=== PATIENT | female | born 1960 | race Caucasian/White ===

== ENCOUNTER → 2016-12-13 | Outpatient (CLI) | payer BC ==
--- NOTE | 2016-12-13 09:59 | FL ---
EXAMINATION TYPE: FL UGI air w esophagus DATE OF EXAM ORDERED: 12/13/2016 9:55 AM HISTORY: Dysphagia. COMPARISON: None. FINDINGS: The esophagus distended well with air and barium without evidence of obstructing or constr icting disease. The mucosal pattern throughout the esophagus is normal. There is a small self reducin g sliding hiatal hernia. Stomach contour is normal. There is no fixed filling defect or wan ulceration. The duodenal cap and sweep are normal. IMPRESSION: SMALL, SELF REDUCING SLIDING HIATAL HERNIA.
== END | disposition home or self-care (01) ==
LOC: RADFLWHC 09:15
PROVIDERS: ATTEND Internal Medicine
DX: K44.9 Diaphragmatic hernia without obstruction or gangrene (principal)
CPT/HCPCS: 74246

== ENCOUNTER → 2017-03-08 | Outpatient (CLI) | payer BC ==
--- NOTE | 2017-03-09 13:54 | MM ---
Reason for exam: screening (asymptomatic). Last mammogram was performed 6 months ago. History: Patient is postmenopausal and is nulliparous. Physical Findings: A clinical breast exam by your physician is recommended on an annual basis and results should be correlated with mammographic findings. MG Screening Mammo w CAD Bilateral CC and MLO view(s) were taken. Prior study comparison: September 22, 2016, right breast MG diagnostic mammo RT w CAD. March 04, 2016, mammogram. The breast tissue is heterogeneously dense. This may lower the sensitivity of mammography. Finding: There are typically benign calcifications in both breasts. No significant changes in finding since September 22, 2016 and March 04, 2016. ASSESSMENT: Benign, BI-RAD 2 RECOMMENDATION: Routine screening mammogram of both breasts in 1 year.
== END | disposition home or self-care (01) ==
LOC: RADMAMWWP 16:50
PROVIDERS: ATTEND Obstetrics & Gynecology
DX: Z12.31 Encounter for screening mammogram for malignant neoplasm of breast (principal)

== ENCOUNTER → 2018-04-21 | Outpatient (CLI) | payer BC ==
--- NOTE | 2018-04-21 14:43 | BD ---
EXAMINATION TYPE: Axial Bone Density DATE OF EXAM: 04/21/2018 COMPARISON: 08/11/2015 CLINICAL HISTORY: Height: 63.5 IN Weight: 141 LBS FRAX RISK QUESTIONS: Secondary Osteoporosis: Current Tobacco Use: YES RISK FACTORS HISTORY OF: Family History of Osteoporosis: UNCLE Active: YES Postmenopausal woman: AGE 44 MEDICATIONS: Thyroid Medications: YES Which medication: Synthroid How Lon YEAR Osteoporosis Medications: NONE NOW Which medication: Fosamax How Long: TOOK FOR 5 YEARS Additional Medications: CALCIUM, VIT D, SYNTHROID, ATENOLOL, ASPIRIN, OVERACTIVE BLADDER MED, BUSPAR, EXAM MEASUREMENTS: Bone mineral densitometry was performed using the [employer] System. Bone mineral density as measured about the Lumbar spine is: ----- L1-L4(G/cm2): 1.333 T Score Values are as follows: ----- L2: 0.2 ----- L3: 1.0 ----- L4: 2.7 ----- L1-L4: 1.3 Bone mineral density has: Increased 2.9% since study of: 08/11/2015 Bone mineral density about the R hip (g/cm2): 0.879 Bone mineral density about the L hip (g/cm2): 0.911 T Score values are as follows: -----R Neck: -1.1 -----L Neck: -0.9 -----R Total: -1.0 -----L Total: -0.7 Bone mineral density has: Increased 4.7% since study of: 08/11/2015 IMPRESSION: Osteopenia (T Score between -2.5 and -1). There is slightly increased risk of fracture and the patient may be considered for treatment. Re-Screen 2-5 years. NOTE: T-SCORE=SD OF THE YOUNG ADULT MEAN.
--- NOTE | 2018-04-25 07:58 | MM ---
Reason for exam: screening (asymptomatic). Last mammogram was performed 1 year and 1 month ago. History: Patient is postmenopausal and is nulliparous. Physical Findings: A clinical breast exam by your physician is recommended on an annual basis and results should be correlated with mammographic findings. MG Screening Mammo w CAD Bilateral CC and MLO view(s) were taken. Prior study comparison: March 08, 2017, bilateral MG screening mammo w CAD. September 22, 2016, right breast MG diagnostic mammo RT w CAD. November 29, 2012, bilateral digital screening mammo w/CAD. The breast tissue is heterogeneously dense. This may lower the sensitivity of mammography. No significant changes when compared with prior studies. ASSESSMENT: Negative, BI-RAD 1 RECOMMENDATION: Routine screening mammogram of both breasts in 1 year.
== END | disposition home or self-care (01) ==
LOC: RADMAMWWP 12:51
PROVIDERS: ATTEND Obstetrics & Gynecology
DX: Z12.31 Encounter for screening mammogram for malignant neoplasm of breast (principal); M85.80 Other specified disorders of bone density and structure, unspecified site; Z78.0 Asymptomatic menopausal state
CPT/HCPCS: 77067; 77080

== ENCOUNTER → 2018-09-27 | Outpatient (CLI) | payer BC ==
[2018-09-27 10:44] VITALS: BP 114/65; PULSE 58; TEMP 96.3; BMI 24.0
--- NOTE | 2018-09-27 11:12 | P.HPOB ---
History of Present Illness H&P Date: 09/27/18 Chief Complaint: The patient is here for her routine gynecologic exam. This is a 58-year-old G0 with an LMP of 2003. Patient is without gynecologic complaints and denies any postmenopausal bleeding. Review of Systems The patient has lost 4 pounds over the last year. She denies respiratory, cardiac, or G.I. problems. Past Medical History Past Medical History: Thyroid Disorder (Hypothyroid) Additional Past Medical History / Comment(s): Arthritis, irregular heartbeat, overactive bladder and osteopenia. PAST RDA HISTORY: She has no history of STDs. History of Any Multi-Drug Resistant Organisms: None Reported Past Surgical History: Orthopedic Surgery (Left shoulder surgery) Additional Past Surgical History / Comment(s): Laparotomy with ovarian cystectomy in 1993. Colonoscopy 2013(2nd). Past Psychological History: No Psychological Hx Reported Smoking Status: Current every day smoker (Half pack per day) Past Alcohol Use History: Occasional (2 per week) Past Drug Use History: None Reported Additional History: She is . She is currently seeing somebody but is not sexually active. 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 - Past Family History Father Family Medical History: Myocardial Infarction ([place]) Mother Family Medical History: Diabetes Mellitus Medications and Allergies Home Medications Medication Instructions Recorded Confirmed Type Aspirin EC [Ecotrin] 325 mg PO DAILY 09/27/18 09/27/18 History Atenolol [Tenormin] 25 mg PO DAILY 09/27/18 09/27/18 History Calcium Carbonate/Vitamin D3 1 each PO BID 09/27/18 09/27/18 History [Caltrate 600 Plus D3 Tablet] Levothyroxine Sodium [Synthroid] 25 mcg PO DAILY 09/27/18 09/27/18 History Multivitamin/Iron/Folic Acid PO DAILY 09/27/18 History [Centrum Adults Tablet] Tolterodine [Detrol] 2 mg PO DAILY 09/27/18 09/27/18 History busPIRone HCL 10 mg PO BID 09/27/18 09/27/18 History Allergies Allergy/AdvReac Type Severity Reaction Status Date / Time No Known Allergies Allergy Unverified 09/27/18 10:34 Exam Vital Signs Temp Pulse BP 09/27/18 10:39 96.3 F L 58 L 114/65 Intake and Output 09/26/18 09/27/1818 22:59 06:59 14:59 Other: Weight 63.503 kg Height 5'4", weight 140 pounds, BMI 24.0. This is a well-developed well-nourished white female who is alert and oriented times 3 in no acute distress. HEENT: Within normal limits. NECK: Supple without mass or thyromegaly. CHEST AND LUNGS: Clear to auscultation. HEART: Regular rate and rhythm. BREASTS: Are without mass or discharge. AXILLARY EXAM: Negative for adenopathy. BACK: Negative for CVA tenderness. ABDOMEN: Soft, nontender, without palpable masses. PELVIC EXAM: Normal external genitalia with mild atrophy. Cervix and vagina appear normal with mild atrophy. There is no unusual discharge. There is no evidence of prolapse. The uterus is midposition, nongravid size and nontender. There are no palpable adnexal masses or tenderness. RECTAL EXAM: rectovaginal exam is negative for mass or tenderness and is negative for occult blood. EXTREMITIES: Nontender. IMPRESSION: 1. 58-year-old menopausal female with normal gynecologic exam. 2. History of osteopenia status post 7 years use of a bisphosphonate. PLAN: 1. Pap smear was deferred since she had a normal one last year. 2. Self breast awareness was discussed with the patient. 3. Screening mammogram was benign on 04/28/2018. She will repeat this in one year. The order slip was given to the patient for this. 4. Osteoporosis prevention was discussed. I have stressed the importance of adequate calcium, vitamin D and regular exercise. Recommended amounts of calcium and vitamin D were also discussed. We will plan a repeating bone density testing in 2-3 years. 5. She states she will be having a colonoscopy done next year. 6. She will return in one year.
== END | disposition home or self-care (01) ==
LOC: WWCWWP 09:48
PROVIDERS: ATTEND Obstetrics & Gynecology
DX: Z53.9 Procedure and treatment not carried out, unspecified reason (principal)

== ENCOUNTER → 2019-04-23 | Outpatient (CLI) | payer BC ==
--- NOTE | 2019-04-23 14:29 | MM ---
Reason for exam: screening (asymptomatic). Last mammogram was performed 1 year ago. History: Patient is postmenopausal and is nulliparous. Physical Findings: A clinical breast exam by your physician is recommended on an annual basis and results should be correlated with mammographic findings. MG Screening Mammo w CAD Bilateral CC and MLO view(s) were taken. Prior study comparison: April 21, 2018, bilateral MG screening mammo w CAD. March 08, 2017, bilateral MG screening mammo w CAD. There are scattered fibroglandular densities. Benign oil cyst calcifications. No significant changes when compared with prior studies. ASSESSMENT: Negative, BI-RAD 1 RECOMMENDATION: Routine screening mammogram of both breasts in 1 year.
== END | disposition home or self-care (01) ==
LOC: RADMAMWWP 08:05
PROVIDERS: ATTEND Obstetrics & Gynecology
DX: Z12.31 Encounter for screening mammogram for malignant neoplasm of breast (principal)
CPT/HCPCS: 77067

== ENCOUNTER → 2019-11-13 | Outpatient (CLI) | payer BC ==
[2019-11-13 09:45] VITALS: BP 117/76; PULSE 62; RESP 18; TEMP 97.8
--- NOTE | 2019-11-13 10:11 | P.HPOB ---
History of Present Illness H&P Date: 11/13/19 Chief Complaint: The patient is here for her routine gynecologic exam. This is a 59-year-old G0 with an LMP of 2003. The patient is without gynecologic complaints and denies any postmenopausal bleeding. Review of Systems The patient has gained 6 pounds over the last year. She denies respiratory, cardiac, or G.I. problems. Past Medical History Past Medical History: Thyroid Disorder Additional Past Medical History / Comment(s): Hypothyroidism. Arthritis, irregular heartbeat, overactive bladder and osteopenia(s/p 7yrs bisphosphonate use). 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 History of Any Multi-Drug Resistant Organisms: None Reported Past Surgical History: Orthopedic Surgery Additional Past Surgical History / Comment(s): Laparotomy with ovarian cystectomy in 1993. Colonoscopy 2013(2nd,next after 5yr). Past Psychological History: No Psychological Hx Reported Smoking Status: Current every day smoker (One pack per day) Past Alcohol Use History: Occasional (2 per week) Past Drug Use History: None Reported Additional History: She is . She has been seeing somebody since approximately 2017 and they are not sexually active. They do not live together. 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 - Past Family History Father Family Medical History: Myocardial Infarction ([place]) Mother Family Medical History: Diabetes Mellitus Medications and Allergies Home Medications Medication Instructions Recorded Confirmed Type Aspirin EC [Ecotrin] 325 mg PO DAILY 09/27/18 11/13/19 History Atenolol [Tenormin] 25 mg PO DAILY 09/27/18 11/13/19 History Calcium Carbonate/Vitamin D3 1 each PO BID 09/27/18 11/13/19 History [Caltrate 600 Plus D3 Tablet] Levothyroxine Sodium [Synthroid] 75 mcg PO DAILY 09/27/18 11/13/19 History Multivitamin/Iron/Folic Acid 1 tab PO DAILY 09/27/18 11/13/19 History [Centrum Adults Tablet] Tolterodine [Detrol] 2 mg PO DAILY 09/27/18 11/13/19 History busPIRone HCL 10 mg PO BID 09/27/18 11/13/19 History Allergies Allergy/AdvReac Type Severity Reaction Status Date / Time No Known Allergies Allergy Unverified 11/13/19 09:40 Exam Vital Signs Temp Pulse Resp BP Pulse Ox 11/13/19 09:42 97.8 F 62 18 117/76 98 Intake and Output 11/12/19 11/13/19 11/13/19 22:59 06:59 14:59 Other: Weight 66.224 kg Height 5 feet 4 inches, weight 146 pounds, BMI 25.1. This is a well-developed well-nourished white female who is alert and oriented times 3 in no acute distress. HEENT: Within normal limits. NECK: Supple without mass or thyromegaly. CHEST AND LUNGS: Clear to auscultation. HEART: Regular rate and rhythm. BREASTS: Are without mass or discharge. AXILLARY EXAM: Negative for adenopathy. BACK: Negative for CVA tenderness. ABDOMEN: Soft, nontender, without palpable masses. PELVIC EXAM: Normal external genitalia with mild to moderate atrophy. Cervix and vagina appear normal with mild atrophy. There is no unusual discharge. There is no evidence of prolapse. The uterus is midposition, nongravid size and nontender. There are no palpable adnexal masses or tenderness. RECTAL EXAM: Rectovaginal exam is negative for mass or tenderness and is negative for occult blood. EXTREMITIES: Nontender. IMPRESSION: 1. 59-year-old menopausal female with normal gynecologic exam. 2. History of osteopenia status post 7 years of bisphosphonate use. PLAN: 1. Pap smear was performed. 2. Self breast awareness was discussed with the patient. 3. Screening mammogram was done on 04/23/2019 and was benign. She will repeat this after 1 year. The order slip was given to the patient for this. 4. Osteoporosis prevention was discussed. I have stressed the importance of adequate calcium, vitamin D and regular exercise. Recommended amounts of calcium and vitamin D were also discussed. We will plan on repeating the bone density testing in 1 year. 5. She believes she is due for her colonoscopy. She will have this arranged through Dr. Gray's office. 6. She was advised to return in one year for her annual well woman exam.
--- NOTE | 2019-11-21 10:04 | P.PN ---
Progress Note - Text Progress Note Date: 11/21/19 OUTPATIENT FOLLOW-UP NOTE TEST(S)/RESULTS: Pap smear done on 11/13/2019 was negative. METHOD OF NOTIFICATION: She was notified by phone. PATIENT COMMENTS: She is happy to hear this result. DIAGNOSIS: Negative Pap smear DISCUSSION: PLAN: She was advised to return in one year for her annual well woman exam.
== END ==
LOC: WWCWWP 09:23
PROVIDERS: ATTEND Obstetrics & Gynecology
DX: Z53.9 Procedure and treatment not carried out, unspecified reason (principal)

== ENCOUNTER → 2020-06-05 | Outpatient (CLI) | payer BC ==
--- NOTE | 2020-06-09 13:55 | MM ---
Reason for exam: screening (asymptomatic). Last mammogram was performed 1 year and 1 month ago. History: Patient is postmenopausal and is nulliparous. Physical Findings: A clinical breast exam by your physician is recommended on an annual basis and results should be correlated with mammographic findings. MG Screening Mammo w CAD Bilateral CC and MLO view(s) were taken. Prior study comparison: April 23, 2019, bilateral MG screening mammo w CAD. April 21, 2018, bilateral MG screening mammo w CAD. The breast tissue is heterogeneously dense. This may lower the sensitivity of mammography. There are benign appearing round calcifications bilaterally. There is no discrete abnormality. ASSESSMENT: Benign, BI-RAD 2 RECOMMENDATION: Routine screening mammogram of both breasts in 1 year.
== END | disposition home or self-care (01) ==
LOC: RADMAMWWP 07:54
PROVIDERS: ATTEND Obstetrics & Gynecology
DX: Z12.31 Encounter for screening mammogram for malignant neoplasm of breast (principal)
CPT/HCPCS: 77067

== ENCOUNTER → 2021-06-09 | Outpatient (CLI) | payer BC ==
--- NOTE | 2021-06-11 11:22 | MM ---
Reason for exam: screening (asymptomatic). Last mammogram was performed 1 year ago. History: Patient is postmenopausal and is nulliparous. Physical Findings: A clinical breast exam by your physician is recommended on an annual basis and results should be correlated with mammographic findings. MG Screening Mammo w CAD Bilateral CC and MLO view(s) were taken. Prior study comparison: June 05, 2020, bilateral MG screening mammo w CAD. April 23, 2019, bilateral MG screening mammo w CAD. The breast tissue is heterogeneously dense. This may lower the sensitivity of mammography. No significant changes when compared with prior studies. ASSESSMENT: Benign, BI-RAD 2 RECOMMENDATION: Routine screening mammogram of both breasts in 1 year.
== END | disposition home or self-care (01) ==
LOC: RADMAMWWP 15:31
PROVIDERS: ATTEND Internal Medicine
DX: Z12.31 Encounter for screening mammogram for malignant neoplasm of breast (principal); Z78.0 Asymptomatic menopausal state
CPT/HCPCS: 77067

== ENCOUNTER → 2021-07-17 | Outpatient (CLI) | payer BC ==
--- NOTE | 2021-07-17 08:40 | BD ---
EXAMINATION TYPE: Axial Bone Density DATE OF EXAM: 07/17/2021 COMPARISON: 2018 CLINICAL HISTORY: osteopenia Height: 5'3 1/2 Weight: 144 FRAX RISK QUESTIONS: History of Fracture in Adulthood: Secondary Osteoporosis: Current Tobacco Use: y RISK FACTORS HISTORY OF: Diet low in dairy products/other sources of calcium: y Postmenopausal woman: y MEDICATIONS: Thyroid Medications: Which medication: synthroid How Lon years Additional Medications: irregular heart beat, overactive bladder Additional History: EXAM MEASUREMENTS: Bone mineral densitometry was performed using the [employer] System. Bone mineral density as measured about the Lumbar spine is: ----- L1-L4(G/cm2): 1.364 T Score Values are as follows: ----- L2: -0.1 ----- L3: 0.7 ----- L4: 3.4 ----- L1-L4: 1.5 Bone mineral density has: increased 1.2% since study of: 04/21/2018 Bone mineral density about the R hip (g/cm2): 0.857 Bone mineral density about the L hip (g/cm2): 0.904 T Score values are as follows: -----R Neck: -1.3 -----L Neck: -1.0 -----R Total: -1.1 -----L Total: -0.8 Bone mineral density has: % since study of: Bone mineral density about the R Wrist (g/cm2): Bone mineral density about the L Wrist (g/cm2): T Score values are as follows: -----Dist. R+U: -----Prox. R+U: -----Radius total: Bone mineral density has: Decreased -0.9% since study of: 04/21/2018 IMPRESSION: Normal (Values between +1 and -1 indicate normal bone mass). Consider repeating this study in 5 year s or sooner if there is some new clinical indication. NOTE: T-SCORE=SD OF THE YOUNG ADULT MEAN.
== END | disposition home or self-care (01) ==
LOC: RADBDWWP 07:57
PROVIDERS: ATTEND Internal Medicine
DX: M81.0 Age-related osteoporosis without current pathological fracture (principal); M85.80 Other specified disorders of bone density and structure, unspecified site
CPT/HCPCS: 77080

== ENCOUNTER → 2022-06-14 | Outpatient (CLI) | payer BC ==
--- NOTE | 2022-06-15 10:47 | MM ---
Reason for Exam: Screening (asymptomatic). Last screening mammogram was performed 12 month(s) ago. Patient History: Menarche at age 8. Patient has no children. Postmenopausal. Risk Values: Lindsey 5 year model risk: 2.0%. NCI Lifetime model risk: 7.9%. Prior Study Comparison: 04/23/2019 Bilateral Screening Mammogram, [facility]. 06/05/2020 Bilateral Screening Mammogram, [facility]. 06/09/2021 Bilateral Screening Mammogram, [facility]. Tissue Density: The breast tissue is heterogeneously dense. This may lower the sensitivity of mammography. Findings: Analyzed By CAD. There is no suspicious group of microcalcifications or new suspicious mass in either breast. Stable benign calcifications. Overall Assessment: Benign, BI-RAD 2 Management: Screening Mammogram of both breasts in 1 year. A clinical breast exam by your physician is recommended on an annual basis and results should be correlated with mammographic findings. Electronically signed and approved by: Pelon Gilmore M.D. Radiologis
== END | disposition home or self-care (01) ==
LOC: RADMAMWWP 08:15
PROVIDERS: ATTEND Family Medicine
DX: Z12.31 Encounter for screening mammogram for malignant neoplasm of breast (principal); Z78.0 Asymptomatic menopausal state
CPT/HCPCS: 77067

== ENCOUNTER → 2023-06-15 | Outpatient (CLI) | payer MEDICARE ==
--- NOTE | 2023-06-16 07:27 | MM ---
Reason for Exam: Screening (asymptomatic). Last screening mammogram was performed 12 month(s) ago. Patient History: Menarche at age 8. Patient has no children. Postmenopausal. Risk Values: Lindsey 5 year model risk: 2.0%. NCI Lifetime model risk: 7.6%. Prior Study Comparison: 06/05/2020 Bilateral Screening Mammogram, [facility]. 06/09/2021 Bilateral Screening Mammogram, [facility]. 06/14/2022 Bilateral MG screening mammo w CAD, [facility]. Tissue Density: There are scattered fibroglandular densities. Findings: Analyzed By CAD. There is no suspicious group of microcalcifications or new suspicious mass in either breast. Overall Assessment: Negative, BI-RAD 1 Management: Screening Mammogram of both breasts in [address] [facility] will attempt to contact patient to return for supplemental views and ultrasound if indicated. Patient should continue monthly self-breast exams. A clinical breast exam by your physician is recommended on an annual basis. This exam should not preclude additional follow-up of suspicious palpable abnormalities. Note on Lindsey scores and lifetime risk: 1. A Lindsey score greater than 3% is considered moderate risk. If this is the case, consider specialist referral to assess eligibility for a risk reducing agent. 2. If overall lifetime risk for the development of breast cancer is 20% or higher, the patient may qualify for future screening with alternating mammogram and breast MRI. Electronically signed and approved by: Jd Bergeron DO
== END | disposition home or self-care (01) ==
LOC: RADMAMWWP 07:51
PROVIDERS: ATTEND Family Medicine
DX: Z12.31 Encounter for screening mammogram for malignant neoplasm of breast (principal); Z78.0 Asymptomatic menopausal state
CPT/HCPCS: 77063; 77067